=== PATIENT | male | born 1975 | race Two or more races ===

== ENCOUNTER 2023-06-11 06:15 | Emergency (ER) | payer SELFPAY ==
[~2023-06-11] VITALS: Ht 167.6 cm; Wt 67.1 kg
[2023-06-11 06:18] VITALS: O2SAT 98
[2023-06-11 06:46] LABS: *BILIRUBIN,URIN NEGATIVE (NEGATIVE); *BLOOD, URINE NEGATIVE (NEGATIVE); *CLARITY,URINE SLIGHTLY CLOUDY (CLEAR); *COLOR,URINE YELLOW (YELLOW); *KETONES,URINE NEGATIVE (NEGATIVE); *PROTEIN,URINE NEGATIVE (NEGATIVE); *UROBILINOGEN,URINE 0.2 E.U./dl (NORMAL); LEUKOCYTE ESTERASE ,URINE NEGATIVE (NEGATIVE); NITRITE, URINE NEGATIVE (NEGATIVE); PH,URINE 5.5 (5.0-8.0); UGLUCOSE NEGATIVE (NEGATIVE)
[2023-06-11] MEDS ORDERED: CEPH500T PO (07:12)
[2023-06-11] MEDS ORDERED: CLOT30CR24 TP (07:12)
[2023-06-11 15:16] LABS: BACTERIA,URINE FEW /HPF (NONE SEEN); RBC,URINE 0-3 /HPF (0-3); SQUAMOUS EPITHELIAL CELL,UR NONE SEEN /HPF (NONE SEEN); WBC,URINE 0-3 /HPF (0-3)
[2023-06-14 04:06] LABS: *TRIC.VAG. NAA Negative (Negative)
[2023-06-14 14:06] LABS: *CHLAMYDIA NAA Negative (Negative); *GC NAA Negative (Negative)
== END 2023-06-11 07:24 | disposition home or self-care (01) ==
LOC: ER 06:15
DX: N47.6 Balanoposthitis (principal); Z59.00 Homelessness unspecified; Z79.899 Other long term (current) drug therapy
CPT/HCPCS: 87491; A4663